=== PATIENT | male | born 1975 | race Caucasian/White ===

== ENCOUNTER 2018-08-03 18:47 | Emergency (ER) | payer OTHER ==
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
[2018-08-03] MEDS ORDERED: IBUPROFEN 600 MG TABLET PO STA (20:25)
[2018-08-03] MEDS ORDERED: LIDOCAINE OINTMENT 5% 35.44 GM TUBE TOP STA (20:25)
[2018-08-03 20:42] VITALS: BP 141/100
== END 2018-08-03 20:43 | disposition home or self-care (01) ==
LOC: ED 18:47
DX: T20.19XA Burn of first degree of multiple sites of head, face, and neck, initial encounter (principal); T31.0 Burns involving less than 10% of body surface; X08.8XXA Exposure to other specified smoke, fire and flames, initial encounter; W40.1XXA Explosion of explosive gases, initial encounter; Y93.89 Activity, other specified; Y99.0 Civilian activity done for income or pay
CPT/HCPCS: 99281; 99282; A9270; 1040M